=== PATIENT | female | born 2000 | race Caucasian/White ===

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

== ENCOUNTER 2019-05-07 11:11 | Emergency (ER) | payer BC ==
[2019-05-07 11:48] VITALS: BP 143/87
--- NOTE | 2019-05-07 12:10 | ED ---
Throat Pain/Nasal Congestion - HPI Summary HPI Summary: 18 yr old female with the complaint of sinus congestion and pain, post nasal drip, coughing, ear pain. Onset ten days ago with the ear pain. Four days of coughing and post nasal drip with sinus pain, pressure. Symptoms are moderate. No fever. - History of Current Complaint Chief Complaint: UCRespiratory Time Seen by Provider: 05/07/19 11:47 - Allergies/Home Medications Allergies/Adverse Reactions: Allergies Allergy/AdvReac Type Severity Reaction Status Date / Time No Known Allergies Allergy Verified 05/07/19 11:43 Home Medications: Home Medications Clindamycin Phos/Benzoyl Perox [Clindamycin/Benzoyl Perox] 1 gel TOPICAL BEDTIME 05/07/19 [History Confirmed 05/07/19] Dm/Acetaminophen/Doxylamine [Vicks Nyquil Cold & Flu N 15-6.25-325 mg] 2 cap PO Q6H PRN 05/07/19 [History Confirmed 05/07/19] Norethindrone-E.estradiol-Iron [Blisovi 24 Fe 1-20 mg-Mcg(24)] 1 tab PO DAILY [History Confirmed 05/07/19] PMH/Surg Hx/FS Hx/Imm Hx Infectious Disease History: No Infectious Disease History: Denies: Traveled Outside the [place] in Last 30 Days - Family History Known Family History: Positive: None, Non-Contributory - Social History Occupation: Employed Part-time Lives: With Family Alcohol Use: None Substance Use Type: Reports: None Smoking Status (MU): Never Smoked Tobacco Review of Systems Constitutional: Negative Positive: Nasal Discharge, Other - sinus pain All Other Systems Reviewed And Are Negative: Yes Physical Exam Triage Information Reviewed: Yes Vital Signs On Initial Exam: Initial Vitals Temp Pulse Resp BP Pulse Ox 98.5 F 92 16 143/87 100 05/07/19 11:41 05/07/19 11:41 05/07/19 11:41 05/07/19 11:41 05/07/19 11:41 Vital Signs Reviewed: Yes Appearance: Positive: Well-Appearing, No Pain Distress Skin: Positive: Warm, Skin Color Reflects Adequate Perfusion Head/Face: Positive: Normal Head/Face Inspection Eyes: Positive: EOMI ENT: Positive: Pharyngeal erythema, Nasal congestion, Nasal drainage, TM dull - retracted, Sinus tenderness Neck: Positive: Nontender Respiratory/Lung Sounds: Positive: Clear to Auscultation, Breath Sounds Present Cardiovascular: Positive: RRR. Negative: Murmur Abdomen Description: Negative: Distended Musculoskeletal: Positive: Strength/ROM Intact Neurological: Positive: Sensory/Motor Intact, Alert, Oriented to Person Place, Time, CN Intact II-III, Normal Gait, Speech Normal Psychiatric: Positive: Normal Diagnostics - Vital Signs Vital Signs Temp Pulse Resp BP Pulse Ox 05/07/19 11:41 98.5 F 92 16 143/87 100 - Laboratory Lab Statement: Any lab studies that have been ordered have been reviewed, and results considered in the medical decision making process. EENT Course/Dx - Course Course Of Treatment: 18 yr old with sinusitis. Rx with augmentin - Diagnoses Provider Diagnoses: Sinusitis, Hypertension Discharge - Sign-Out/Discharge Documenting (check all that apply): Patient Departure All imaging exams completed and their final reports reviewed: No Studies - Discharge Plan Condition: Good Disposition: HOME Prescriptions: Amoxicillin/Clavulanate TAB* [Augmentin TAB 875*] 875 mg PO BID #20 tab Patient Education Materials: Sinusitis (ED), Hypertension (ED) Forms: *Work Release Referrals: Nasrin Everett NP [Primary Care Provider] - 2 Days - Billing Disposition and Condition Condition: GOOD Disposition: Home
== END 2019-05-07 12:11 | disposition home or self-care (01) ==
LOC: UCCORT 11:11
DX: J32.9 Chronic sinusitis, unspecified (principal); I10 Essential (primary) hypertension
CPT/HCPCS: 99212; G0463

== ENCOUNTER 2019-05-22 12:52 | Emergency (ER) | payer BC ==
[2019-05-22 13:27] VITALS: BP 140/74
--- NOTE | 2019-05-22 13:44 | UC ---
Complaint Female HPI - HPI Summary HPI Summary: UTI symptoms over the past week with symptoms waxing and waning but now worse today. - History Of Current Complaint Chief Complaint: UCGU Stated Complaint: URINARY COMPLAINT Time Seen by Provider: 05/22/19 13:30 Hx Obtained From: Patient Hx Last Menstrual Period: 05/05/19 Onset/Duration: Gradual Onset Timing: Intermittent Severity Initially: Mild Severity Currently: Mild Pain Intensity: 0 Character: Burning Aggravating Factor(s): Urination Alleviating Factor(s): Nothing Associated Signs And Symptoms: Positive: Vaginal Bleeding/Discharge - Pt states she had a small drop of blood and wasn't sure if it was in urine. She is 2 weeks into her Control pack. She missed one pill in the past week and thinks it might be breakthrough bleeding but she isn't sure because of the UTI symptoms. She has no abnormal vaginal discharge, nor does she have any abdominal or pelvic pain. - Allergies/Home Medications Allergies/Adverse Reactions: Allergies Allergy/AdvReac Type Severity Reaction Status Date / Time No Known Allergies Allergy Verified 05/22/19 13:22 Home Medications: Home Medications Adapalene 0.1% CREAM (NF) [Differin 0.1 % CREAM (NF)] 0.1 % EX DAILY 05/22/19 [ History Confirmed 05/22/19] Clindamycin Phos/Benzoyl Perox [Benzaclin 1-5 %] 1 dose EX DAILY 05/22/19 [ History Confirmed 05/22/19] PMH/Surg Hx/FS Hx/Imm Hx Previously Healthy: Yes - Surgical History Surgical History: None - Family History Known Family History: Positive: None, Non-Contributory - Social History Occupation: Employed Full-time Alcohol Use: None Substance Use Type: None Smoking Status (MU): Never Smoked Tobacco - Immunization History Vaccination Up to Date: Yes Review of Systems All Other Systems Reviewed And Are Negative: Yes Genitourinary: Positive: Dysuria, Hematuria, Frequency, Urgency Is Patient Immunocompromised?: No Physical Exam Triage Information Reviewed: Yes Appearance: Well-Appearing, No Pain Distress, Well-Nourished Vital Signs: Initial Vital Signs Temp 99.2 F 05/22/19 13:23 Pulse 108 05/22/19 13:23 Resp 20 05/22/19 13:23 BP 140/74 05/22/19 13:23 Pulse Ox 100 05/22/19 13:23 Vital Signs Reviewed: Yes Respiratory: Positive: Lungs clear, Normal breath sounds, No respiratory distress, No accessory muscle use Cardiovascular: Positive: RRR, No Murmur, Pulses Normal, Brisk Capillary Refill Abdomen Description: Positive: Nontender, No Organomegaly, Soft. Negative: CVA Tenderness (R), CVA Tenderness (L) Bowel Sounds: Positive: Present Musculoskeletal Exam: Normal Neurological Exam: Normal Psychological Exam: Normal Skin Exam: Normal Complaint Female Dx - Course Course Of Treatment: U/A positive for UTI, Urine HCG negative. - Differential Dx/Diagnosis Provider Diagnosis: UTI (urinary tract infection) Discharge - Sign-Out/Discharge Documenting (check all that apply): Patient Departure All imaging exams completed and their final reports reviewed: No Studies - Discharge Plan Condition: Fair Disposition: HOME Prescriptions: Phenazopyridine TAB* [Pyridium 100 mg TAB*] 100 mg PO TID PRN 2 Days #6 tab PRN Reason: Pain Sulfamethox/Trimethoprim DS* [Bactrim DS 800/160 TAB*] 1 tab PO BID 5 Days #10 tab Patient Education Materials: Urinary Tract Infection in Women (DC) Referrals: Nasrin Everett NP [Primary Care Provider] - Additional Instructions: Increase fluids, Go to the ER if you develop fever, chills, back pain, vomiting. Follow up with your primary care provider in 3-4 days if no improvement. - Billing Disposition and Condition Condition: FAIR Disposition: Home
== END 2019-05-22 13:50 | disposition home or self-care (01) ==
LOC: UCCORT 12:52
DX: N39.0 Urinary tract infection, site not specified (principal)
CPT/HCPCS: 81003; 84702; 87077; 87086; 87186; 99212; G0463